=== PATIENT | female | born 2000 | race Caucasian/White ===

== ENCOUNTER 2023-09-22 10:22 | Inpatient (IN) | payer MEDICAID, OTHER ==
[2023-09-22] MEDS ORDERED: Labetalol HCl 100 MG/20 ML VIAL ONE (10:31)
[2023-09-22] MEDS ORDERED: NIFEdipine 10 MG CAP ONE (10:31)
[2023-09-22] MEDS ORDERED: hydrALAZINE 20 MG/ML VIAL ONE (10:32)
[2023-09-22] MEDS ORDERED: Magnesium Sulfate 20 gm/500 ml 20 GM/500 ML BAG ONE (10:32)
[2023-09-22] MEDS ORDERED: Labetalol HCl 100 MG/20 ML VIAL SLOW IVP PRN ×2 (11:06)
[2023-09-22] MEDS ORDERED: hydrALAZINE 20 MG/ML VIAL SLOW IVP PRN ×3 (11:06)
[2023-09-22] MEDS ORDERED: Carboprost 250 MCG/ML AMP IM PRN (11:06)
[2023-09-22] MEDS ORDERED: Diphenoxylate HCl/Atropine Tablet PO PRN (11:06)
[2023-09-22] MEDS ORDERED: Lorazepam 2 MG/ML VIAL SLOW IVP PRN (11:06)
[2023-09-22] MEDS ORDERED: Ondansetron PF 4 MG/2 ML Vial IVP PRN (11:06)
[2023-09-22] MEDS ORDERED: Misoprostol 200 MCG TAB PR PRN (11:06)
[2023-09-22] MEDS ORDERED: Tranexamic Acid 1,000 MG/10 ML VIAL IVP PRN (11:06)
[2023-09-22] MEDS ORDERED: Calcium Gluc 4.6 MEQ/10 ML (100 MG/ML) SLOW IVP PRN (11:06)
[2023-09-22] MEDS ORDERED: Promethazine HCl 25 MG/ML VIAL IM PRN (11:06)
[2023-09-22] MEDS ORDERED: Betamet Acet/Betamet Na Ph 30 MG/5 ML VIAL IM SCH (11:15)
[2023-09-22] MEDS: Magnesium Sulfate 20 gm/500 ml 20 GM/500 ML BAG IVPB SCH ×2 (11:15→20:06)
[2023-09-22] MEDS ORDERED: Lactated Ringer's 1,000 ML IV SCH (11:15)
[2023-09-22] MEDS ORDERED: Oxytocin 30 units/NS 500 ML 500 ML IV SCH (11:15)
[2023-09-22 11:25] LABS: Hematocrit 36.3 % (34.9-44.5); Hemoglobin 12.3 g/dL (12.0-15.5); Mean Corpuscular HGB CONC 33.9 g/dL (32.0-36.0); Mean Corpuscular Hemoglobin 27.7 pg (27.0-33.0); Mean Corpuscular Volume 81.8 fl (81.6-98.3); Mean Platelet Volume 11.6 fl (7.4-10.4); Platelet Count 224 10x3/uL (150-450); RBC Distribution Width 13.4 % (11.5-14.5); Red Blood Cell (RBC) Count 4.44 10x6/uL (3.90-5.03); White Blood Cell (WBC) Count 9.7 10x3/uL (3.5-10.5)
[2023-09-22 11:44] LABS: ALT (SGPT) 38 U/L (8-55); AST (SGOT) 34 U/L (5-34); Albumin 3.4 g/dL (3.5-5.0); Alkaline Phosphatase 72 U/L (40-110); Anion Gap 11 mmol/L (10-20); BUN (Urea Nitrogen) 7 mg/dL (7.0-18.7); Bilirubin, Total 0.4 mg/dL (0.2-1.2); Calc. Creatinine Clearance 0 mL/min (70-130); Calcium 8.4 mg/dL (7.8-10.44); Carbon Dioxide 20 mmol/L (22-29); Chloride 109 mmol/L (98-107); Estimated GFR 129; Globulin 2.6 g/dL (2.4-3.5); Glucose 101 mg/dL (70-105); Potassium 4.1 mmol/L (3.5-5.1); Sodium 136 mmol/L (136-145)
[2023-09-22 12:05] LABS: Hep B Surf Ag - L&D Non-Reactive S/CO (NonReactive)
[2023-09-22 12:07] LABS: Syphilis Antibody Nonreactive (Nonreactive); Syphilis Antibody Index 0.07 S/CO (<1.00 Non-Reactive)
[2023-09-22 12:07] LABS: Creatinine, Urine 35.84 mg/dL (47-110)
[2023-09-22 12:29] VITALS: BMI 27.4
[2023-09-22] MEDS: Acetaminophen 500 MG TAB PO PRN ×2 (12:37→19:35)
[2023-09-22] MEDS ORDERED: Labetalol HCl 100 MG TAB PO SCH (14:00)
[2023-09-22 17:26] VITALS: BP 158/98
== END 2023-09-22 21:35 | disposition short-term general hospital (02) | DRG 833 ==
LOC: CSHLD 10:22
PROVIDERS: ADMIT Family Medicine; ATTEND Family Medicine
DX: O14.13 Severe pre-eclampsia, third trimester (principal); Z3A.28 28 weeks gestation of pregnancy; O36.5930 Maternal care for other known or suspected poor fetal growth, third trimester, not applicable or unspecified; Z79.82 Long term (current) use of aspirin
CPT/HCPCS: 36415; 51702; 76815; 80053; 82570; 84156; 85027; 86780; 86850; 86900; 86901; 87340; 99285; J0360; J0702; J3475; J7120